=== PATIENT | male | born 1965 | race Caucasian/White ===

== ENCOUNTER 2016-11-22 06:20 | Emergency (ER) | payer OTHER ==
[2016-11-22 06:27] VITALS: BP 131/77; BMI 29.7
[2016-11-22] MEDS ORDERED: PREDNISONE TAB 20 MG PO ONE ×3 (06:44→06:58)
[2016-11-22] MEDS ORDERED: TORADOL 60 MG VIAL IM ONE (06:44)
--- NOTE | 2016-11-22 06:48 | DR.GENAD ---
HPI - PCP Primary Care Physician: Annalee - Complaint/Symptoms Chief Complaint Doctors Comments: Patient complains of right elbow pain worst when he move his arm or straighten his elbow. States he was cutting down bushes in his yard a few days ago with pain in his right arm. States he and his mother thinks he pulled a liagment. States the pain is in his right arm at the elbow and goes toward his hand. He denies neck or shoulder pain. He denies headache or dizziness presently. States his strength is normal and the pain is 8 of 10. States he has been taking Goodys for pain. Chief Complaint:: "I was cutting down a mejia and my arm started hurting real bad. It feels like I pulled a ligament or something." - Nurses notes reviewed Nurses Notes Review: Yes - Source History Provided: Patient - Mode of Arrival Mode of Arrival: Ambulatory - Timing Onset of Chief Complaint: 11/10/16 Came on: Gradually - Duration Duration: Constant How lon Duration: Days - Location Location: right elbow - Severity Severity: Moderate - Modifying Factors Worsens:: movement Improves:: nothing PMH - PMH Past Medical History: Yes Past Medical History: Depression, Hypertension, Kidney Stones Past Surgical History: Yes Surgical History: Cholecystectomy, Ortho Surgery - Family History History of Family Medical Conditions: Yes Family Medical History: Cancer, [place], Coronary Artery Disease, Hypertension - Social History Does patient currently use any type of tobacco product: Yes Have you used tobacco products in the last 12 months: Yes Type of Tobacco Use: Cigarettes Does any household member use tobacco: Yes Alcohol Use: None Do you use any recreational Drugs:: No Lives With: Alone Lives Where: Home - infectious screening In the last 2 months have you had wt loss of >10#?: NO Have you had fever, night sweats or hemotysis?: No Have you traveled outside the country in the last 6 months?: No Isolation: Standard ROS - Review of Systems Constitutional: No Symptoms Reported. negative: See HPI, Chills, Diaphoresis, Fever, Malaise, Weakness, Irritable, Fatigue, Loss of Appetite, Other Eyes: No Symptoms Reported ENTM: No Symptoms Reported Respiratoy: No Symptoms Reported. negative: See HPI, Productive Cough, Non- Productive Cough, Moist Cough, Dry Cough, Hacking Cough, Barking Cough, Brassy Cough, Orthopnea, Short of Breath, Stridor, Wheezing, Hemoptysis, Other Cardiovascular: No Symptoms Reported Gastrointestinal/Abdominal: No Symptoms Reported. negative: See HPI, Abdominal Pain, Constipation, Diarrhea, Nausea, Vomiting, Food Intolerance, Other Genitourinary: No Symptoms Reported Neurological: Paresthesia (right arm at elbow). negative: No Symptoms Reported , See HPI, Anxiety, Depressed, Emotional Problems, Headache, Numbness, Pre- existing Deficit, Seizure, Tingling, Tremors, Weakness, Dizziness, Problems Walking, Speech Problem, Other Musculoskeletal: No Symptoms Reported, Right, Elbow, Forearm Integumentary: No Symptoms Reported Hematologic/Lymphatic: No Symptoms Reported Endocrine: No Symptoms Reported Psychiatric: No Symptoms Reported PE - Vital Signs Vitals: Temperature 98 F Pulse Rate 107 Respiratory Rate 18 Blood Pressure [Right Arm] 128/79 Blood Pressure [Left Arm] 98/65 Blood Pressure 131/77 O2 Sat by Pulse Oximetry 98 - General Limitations: No Limitations General Appearance: Alert, In Distress (moderate) - Head Head Exam: Normal Inspection, Atraumatic, Normocephalic - Eyes Eye exam: Normal Appearance, PERRL, EOMI. negative: Scleral Icterus, Conjunctival Injection, Nystagmus, Miosis, Mydrasis, Periorbital Swelling, Periorbital Tenderness, Other - ENT ENT Exam: Normal Exam, Normal Oropharynx, Normal External Ear Exam, Mucous Membranes Moist, TM's Normal Bilaterally External Ear Exam: Normal External Inspection TM/Canal Exam: Bilateral Normal Nose Exam: Normal Nose Exam Mouth Exam: Normal Inspection Throat Exam: Normal Inspection - Neck Neck Exam: Normal Inspection, Full ROM, Trachea Midline. negative: Tenderness, Meningismus, Lymphadenopathy, Thyromegaly, Other - Chest Chest Inspection: Normal Inspection, Symmetric Chest Wall Rise. negative: Tenderness, Rash, Abscess, Other - Respiratory Respiratory Exam: Normal Lung Sounds Bilat Respiratory Exam: Bilateral Clear to Auscultation - Cardiovascular Cardiovascular Exam: Regular Rate, Normal Rhythm, Normal Heart Sounds - Abdominal Exam Abdominal Exam: Normal Inspection, Normal Bowel Sounds, Soft. negative: Distention, Tenderness, Guarding, Rebound, Rigidity, Dimnished Bowel Sounds, Hyperactive Bowel Sounds, Hypoactive Bowel Sounds, Organomegaly, Trauma, Incision, Ascites, Mass, Bruit, Pulsatile Mass, Hernia, Other Abdominal Tenderness: negative: RUQ, RLQ, LUQ, LLQ, Epigastrium, Suprapubic, Diffuse, Mild, Moderate, Severe, Other - Extremities Extremities Exam: Normal Inspection, Full ROM, Tenderness (right elbow tender on palpation medial arm and extension of elbow), Normal Capillary Refill - Back Back Exam: Normal Inspection, Full ROM. negative: Tenderness, (R) CVA Tenderness, (L) CVA Tenderness, Muscle Spasm, Paraspinal Tenderness, Vertebral Tenderness, Rashes, (R) Sciatic Notch Tenderness, (L) Sciatic Notch Tendern, (R ) Straight Leg Raise, (L) Straight Leg Raise, Other - Neurologic Neurological Exam: Alert, Oriented X3, CN II-XII Intact, Normal Gait, Reflexes Normal - Psychiatric Psychiatric Exam: Normal Affect, Normal Mood - Skin Skin Exam: Warm, Dry, Intact, Normal Color ROR - Labs Reviewed Laboratory Results Reviewed?: Yes (all x-ray results reviewed and discussed with patient) - XRAY XRAY Interpreted by: Radiologist (Right elbow: Periacrticular joint edema withou acute fracture: Forearm: Diffuse forearm soft tissue swelling and edema. Negative right forearm radiography for acute fracture.) - Diagnosis Discharge Problem: Arm pain, right, Tendonitis of elbow, right Muscle strain of forearm Qualifiers: Encounter type: initial encounter Laterality: right Qualified Code(s): S56.911A - Strain of unspecified muscles, fascia and tendons at forearm level, right arm, initial encounter - Discharge Plan Disposition: HOME, SELF-CARE Condition: Stable Prescriptions: Acetaminophen/Codeine Tab [TYLENOL w/CODEINE #3 (300 MG/30 MG) *] 1 tab PO Q4- 6H PRN #30 tab PRN Reason: Pain Meloxicam [MOBIC 15 MG *] 15 mg PO DAILY #10 tab Methylprednisolone [Medrol Dosepak] 4 mg PO TID 7 Days - Follow ups/Referrals Follow ups/Referrals: JOE POLANCO [Primary Care Provider] - 3 days BORA BALBUENA [STAFF PHYSICIAN] - 3 days - Instructions Instructions: Tendon Injury, Tendinitis, [id number], Muscle Pain, Adult
[2016-11-22] MEDS ORDERED: TORADOL 60 MG VIAL ONE (06:54)
--- NOTE | 2016-11-22 07:21 | RAD ---
HISTORY: Right elbow pain. Study: 3 view series right elbow joint. Comparison: None Findings: No acute fracture, subluxation, or dislocation is identified. No lytic or bone forming lesions are s een. No osteochondral defects are observed. There is no evidence for significant degenerative arthro sis and or focal joint erosion. No elbow intra-articular loose bodies are seen. No joint effusion is seen. The radial head is unremarkable in its appearance. IMPRESSION: 1. Periarticular joint edema without acute fracture or dislocation observed. Reported By:
--- NOTE | 2016-11-22 07:22 | RAD ---
History: Forearm pain. Exam: AP and lateral views right forearm. Findings: The radius and ulna both are intact. There is no evidence for an acute fracture or disloca tion of either the proximal or distal radius or ulna. The DRUJ and elbow joints are both intact. Wha t is visible of the carpal bones shows no acute fracture/ bony abnormality. No unexpected radiopaque foreign bodies are seen. Diffuse forearm edema is appreciated. Impression: Diffuse forearm soft tissue swelling and edema observed. Negative right forearm radiography for acute fracture. Reported By:
== END 2016-11-22 08:12 | disposition home or self-care (01) ==
LOC: ER 06:20
DX: S56.911A Strain of unspecified muscles, fascia and tendons at forearm level, right arm, initial encounter (principal); M70.31 Other bursitis of elbow, right elbow; M79.601 Pain in right arm; M79.89 Other specified soft tissue disorders; Y33.XXXA Other specified events, undetermined intent, initial encounter; Y92.9 Unspecified place or not applicable; R60.9 Edema, unspecified
CPT/HCPCS: 73070; 73090; 96372; 99282; J1885; J7506

== ENCOUNTER 2017-04-25 01:09 | Emergency (ER) | payer OTHER, MEDICAID ==
[2017-04-25 01:23] VITALS: BP 142/96; BMI 31.3
--- NOTE | 2017-04-27 01:04 | DR.GENAD ---
HPI - PCP Primary Care Physician: Felicitas POLACNO NP - Complaint/Symptoms Chief Complaint:: SHARP PAINS IN RIGHT ARM/ELBOW AREA CANNOT HOLD ONTO ANYTHING. SWOLLEN AREA ON FOREARM NEAR ELBOW. - Source History Provided: Patient - Mode of Arrival Mode of Arrival: Ambulatory - Timing Onset of Chief Complaint: 02/17/17 PMH - PMH Past Medical History: Yes Past Medical History: Depression, Hypertension, Kidney Stones Past Surgical History: Yes Surgical History: Cholecystectomy, Ortho Surgery - Family History History of Family Medical Conditions: Yes Family Medical History: Cancer, [place], Coronary Artery Disease, Hypertension - Social History Does patient currently use any type of tobacco product: Yes Have you used tobacco products in the last 12 months: Yes Type of Tobacco Use: Cigarettes How many years tobacco product used: 30 Does any household member use tobacco: No Alcohol Use: None Do you use any recreational Drugs:: No Lives With: Alone Lives Where: Home - infectious screening In the last 2 months have you had wt loss of >10#?: NO Have you had fever, night sweats or hemotysis?: No Have you traveled outside the country in the last 6 months?: No Isolation: Standard PE - Vital Signs Vitals: Temperature 97.9 F Pulse Rate 107 Respiratory Rate 20 Blood Pressure [Right Arm] 128/79 Blood Pressure [Left Arm] 98/65 Blood Pressure 142/96 O2 Sat by Pulse Oximetry 97 - Discharge Plan Disposition: LWBS After Triage Condition: Stable - Follow ups/Referrals Follow ups/Referrals: JOE POLANCO [Primary Care Provider] - 3 days - Instructions
== END 2017-04-25 01:45 | disposition left against medical advice (07) ==
LOC: ER 01:09
DX: M79.601 Pain in right arm (principal)
CPT/HCPCS: 99281

== ENCOUNTER 2019-08-22 21:35 | Inpatient (IN) ==
[2019-08-22 22:03] VITALS: BMI 32.6
[2019-08-22] MEDS ORDERED: BENADRYL INJ 50 MG VIAL IM ONE (22:11)
[2019-08-22] MEDS ORDERED: HALDOL INJ IM ONE (22:11)
[2019-08-22] MEDS ORDERED: ATIVAN INJ 2 MG VIAL IVP ONE (22:12)
--- NOTE | 2019-08-22 22:14 | DR.AMS ---
HPI Time Seen Time Seen by Provider: 08/22/19 22:11 PCP Primary Care Physician: HPI Comment HPI Comment: Pt. very agitated. Long psych hx. He is claiming " someone slipped me something" Pt. sniffling constantly throughout eval and triage Complaint Chief Complaint:: PT STATED HE HAS NUMBNESS NOTED IN BOTH ARMS AND CHEST. Source History Provided: Patient Mode of Arrival Mode of Arrival: Ambulatory Timing Onset of Chief Complaint: 08/20/19 Came On: Suddenly Symptoms: Worsening Symptom Onset: Unknown Duration Duration: Since Onset Quality Quality: Change in Behavior Severity Severity: Moderate Context Recent: None History Of: None Associated Signs and Symptoms Associated Signs and Symptoms: Change in Behavior PMH PMH Past Medical History: Yes Past Medical History: Hypertension Past Surgical History: Yes Surgical History: Cholecystectomy and Ortho Surgery Past Surgical History Comment: LEFT LEG SURGERY. CARPAL TUNNEL SURGERY ON LEFT ARM. Family History History of Family Medical Conditions: Yes Family Medical History: Diabetes Mellitus and Hypertension Social History Does patient currently use any type of tobacco product: Yes Have you used tobacco products in the last 12 months: Yes Type of Tobacco Use: Cigarettes Does any household member use tobacco: Yes Alcohol Use: None Do you use any recreational Drugs:: No Lives With: Family infectious screening In the last 2 months have you had wt loss of >10#?: NO Have you had fever, night sweats or hemotysis?: No Have you traveled outside the country in the last 6 months?: No Isolation: Standard ROS Review of Systems Constitutional: No Symptoms Reported Eyes: No Symptoms Reported ENTM: No Symptoms Reported Respiratoy: No Symptoms Reported Cardiovascular: No Symptoms Reported Gastrointestinal/Abdominal: No Symptoms Reported Genitourinary: No Symptoms Reported Neurological: Numbness and Tingling Musculoskeletal: No Symptoms Reported and Muscle Pain (myalgia generalized) Integumentary: No Symptoms Reported Hematologic/Lymphatic: No Symptoms Reported Endocrine: No Symptoms Reported Psychiatric: See HPI, Anxiety and Other (agitation) All Other Systems: Reviewed and Negative PE Vitals Vital Signs: Temp Pulse Pulse Resp BP BP BP 08/23/19 08:00 106/72 08/23/19 07:45 112/58 08/23/19 07:00 124/53 08/23/19 06:30 116/59 08/23/19 06:00 138/95 08/23/19 05:30 84 153/77 08/23/19 05:00 86 136/77 08/23/19 04:30 93 H 173/89 08/23/19 04:00 89 119/74 08/23/19 03:15 84 105/65 08/23/19 03:00 86 107/66 08/23/19 00:45 130/60 08/23/19 00:06 127/82 08/22/19 21:56 97.8 F 133 H 22 04/18/19 10:32 146/84 08/12/18 20:28 144/83 06/01/14 01:43 128/79 Pulse Ox 08/23/19 08:00 08/23/19 07:45 08/23/19 07:00 08/23/19 06:30 08/23/19 06:00 08/23/19 05:30 08/23/19 05:00 08/23/19 04:30 08/23/19 04:00 08/23/19 03:15 08/23/19 03:00 08/23/19 00:45 08/23/19 00:06 08/22/19 21:56 96 04/18/19 10:32 08/12/18 20:28 06/01/14 01:43 General Limitations: No Limitations General Appearance: Alert, Anxious, In Distress and Other (agitated) Head Head Exam: Normal Inspection Eyes Eye exam: Normal Appearance ENT ENT Exam: Normal Exam External Ear Exam: Normal External Inspection Nose Exam: Normal Nose Exam Mouth Exam: Normal Inspection Throat Exam: Normal Inspection Neck Neck Exam: Normal Inspection Chest Chest Inspection: Normal Inspection Respiratory Respiratory Exam: Normal Lung Sounds Bilat Cardiovascular Cardiovascular Exam: Regular Rate and Normal Rhythm Abdominal Exam Abdominal Exam: Normal Inspection, Normal Bowel Sounds and Soft Extremities Extremities Exam: Normal Inspection Back Back Exam: Normal Inspection Neurological Neurological Exam: Alert and Oriented X3 Psychological Psychiatric Exam: Normal Affect and Normal Mood Skin Skin Exam: Warm, Dry, Intact and Normal Color MDM Additional Information Obtained Additional Information Obtained From: Family Differential Diagnosis Metabolic: Dehydration, Hypoglycemia and Post-ictal COURSE Reevaluation 1st: Unchanged 2nd: Improved ROR Labs Reviewed Laboratory Results Reviewed?: Yes Result Diagrams: 08/23/19 00:32 08/23/19 08:36 Laboratory: WBC 8.3 X10^3/uL (3.6-10.0) 08/23/19 00:32 RBC 5.00 X10^6/uL (4.7-6.0) 08/23/19 00:32 Hgb 13.3 g/dL (13.5-18.0) L 08/23/19 00:32 Hct 39.5 % (42.0-54.0) L 08/23/19 00:32 MCV 79.0 fL (80.0-100.0) L 08/23/19 00:32 MCH 26.5 pg (27.0-34.0) L 08/23/19 00:32 MCHC 33.6 g/dL (33.0-35.0) 08/23/19 00:32 RDW 14.6 % (11.6-16.5) 08/23/19 00:32 Plt Count 159 X10^3/uL (150.0-450.0) 08/23/19 00:32 MPV 10.1 fL (7.4-11.0) 08/23/19 00:32 Neut % (Auto) 54.6 % (42.0-75.0) 08/23/19 00:32 Lymph % (Auto) 26.2 % (21.0-51.0) 08/23/19 00:32 [place] % (Auto) 11.7 % (0.0-13.0) 08/23/19 00:32 Eos % (Auto) 6.1 % (0.9-2.9) H 08/23/19 00:32 Baso % (Auto) 1.4 % (0.2-1.0) H 08/23/19 00:32 Neut # (Auto) 4.5 x10^3/uL (2.2-4.8) 08/23/19 00:32 Lymph # (Auto) 2.2 X10^3/uL (1.3-2.9) 08/23/19 00:32 [place] # (Auto) 1.0 x10^3/uL (0.3-0.8) H 08/23/19 00:32 Eos # (Auto) 0.5 x10^3/uL (0.0-0.2) H 08/23/19 00:32 Baso # (Auto) 0.1 X10^3/uL (0.0-0.1) 08/23/19 00:32 Absolute Nucleated RBC 0.0 /100WBC 08/23/19 00:32 Sodium 142 mmol/L (136-145) 08/23/19 00:32 Corrected Sodium 143 mmol/L (136-145) 08/23/19 00:32 Potassium 3.9 mmol/L (3.5-5.1) 08/23/19 00:32 Chloride 107 mmol/L (98-107) 08/23/19 00:32 Carbon Dioxide 22.1 mmol/L (21-32) 08/23/19 00:32 BUN 29 mg/dL (7-18) H 08/23/19 00:32 Creatinine 1.10 mg/dL (0.70-1.30) 08/23/19 00:32 Est GFR (MDRD) Af Amer > 60 (>60) 08/23/19 00:32 Est GFR (MDRD) Non-Af > 60 (>60) 08/23/19 00:32 Glucose 135 mg/dL (65-99) H 08/23/19 00:32 Calcium 8.4 mg/dL (8.5-10.1) L 08/23/19 00:32 Corrected Calcium TNP 08/23/19 00:32 Total Bilirubin 0.30 mg/dL (0.2-1.0) 08/23/19 00:32 AST 193 Units/L (15-37) H 08/23/19 00:32 ALT 71 Units/L (12-78) 08/23/19 00:32 Alkaline Phosphatase 128 Units/L (46-116) H 08/23/19 00:32 Creatine Kinase 7817 Units/L (39-308) H 08/23/19 00:32 Total Protein 7.8 g/dL (6.4-8.2) 08/23/19 00:32 Albumin 3.9 g/dL (3.4-5.0) 08/23/19 00:32 Globulin 3.9 g/dL (2.5-4.5) 08/23/19 00:32 Albumin/Globulin Ratio 1.0 Ratio (1.1-2.1) L 08/23/19 00:32 Specimen Type Random urine 08/23/19 07:43 Urine Color Yellow (YELLOW) 08/23/19 07:43 Urine Appearance Hazy (CLEAR) 08/23/19 07:43 Urine pH 5.0 (5.0 - 8.0) 08/23/19 07:43 Ur Specific [place] 1.025 (1.000-1.030) 08/23/19 07:43 Urine Protein 1+ (NEGATIVE) 08/23/19 07:43 Urine Glucose (UA) Negative (NEGATIVE) 08/23/19 07:43 Urine Ketones 2+ (NEGATIVE) 08/23/19 07:43 Urine Occult Blood 1+ (NEGATIVE) 08/23/19 07:43 Urine Nitrite Negative (NEGATIVE) 08/23/19 07:43 Urine Bilirubin Negative (NEGATIVE) 08/23/19 07:43 Urine Urobilinogen Normal (NORMAL) 08/23/19 07:43 Ur Leukocyte Esterase 2+ (NEGATIVE) 08/23/19 07:43 Urine RBC 0-2 /HPF (0-3) 08/23/19 07:43 Urine WBC 0-2 /HPF (0-5) 08/23/19 07:43 Ur Squamous Epith Cells Negative /HPF (NEGATIVE) 08/23/19 07:43 Urine Bacteria Negative /HPF (NEGATIVE) 08/23/19 07:43 Ur Culture Indicated? No/not indicated 08/23/19 07:43 Urine Opiates Screen Negative (NEG=<300) 08/23/19 07:43 Urine Methadone Screen Negative (NEG=<300) 08/23/19 07:43 Ur Barbiturates Screen Negative (NEG=<200) 08/23/19 07:43 Ur Phencyclidine Scrn Negative (NEG=<25) 08/23/19 07:43 Ur Amphetamines Screen Positive (NEG=<1000) 08/23/19 07:43 U Benzodiazepines Scrn Negative (NEG=<200) 08/23/19 07:43 Urine Cocaine Screen Negative (NEG=<300) 08/23/19 07:43 U Marijuana (THC) Screen Negative (NEG=<50) 08/23/19 07:43 XRAY XRAY Interpreted by: Self XRAY Findings: CXR NAD neg infiltrate normal mediastinum EKG Rate: 65 [place]: Normal Rhythm: NSR Block: None ST: Normal Opioid Opioid Risk Tool Age (Jelani box if 16-45): No History of Preadolescent Sexual Abuse: No Total: 0 Total Score Risk Category: Low Risk Copyright: Zoltan PINA predicting aberrant behaviors Procedures Procedure Comments Procedures: critical care time 68 minutes Diagnosis Discharge Problem: Methamphetamine intoxication Rhabdomyolysis Qualifiers: Rhabdomyolysis type: non-traumatic Qualified Code(s): M62.82 - Rhabdomyolysis ADDITIONAL NOTES Additional Notes Additional Notes: Dr. Loco accepted at 08:18
[2019-08-22] MEDS ORDERED: ATIVAN INJ 2 MG VIAL ONE (22:22)
[2019-08-22] MEDS ORDERED: BENADRYL INJ 50 MG VIAL ONE (22:31)
[2019-08-22] MEDS ORDERED: GEODON INJ IM ONE ×2 (23:12→23:29)
[2019-08-22] MEDS ORDERED: GEODON INJ IM NR (23:45)
[2019-08-23] MEDS ORDERED: NS 1000 ML 1,000 ML IV ONE ×4 (00:12→08:22)
[2019-08-23] MEDS ORDERED: NS 1000 ML 1,000 ML ONE ×3 (00:23→06:36)
[2019-08-23 00:43] LABS: BASOPHILS # (AUTO) 0.1 X10^3/uL (0.0-0.1); BASOPHILS % (AUTO) 1.4 % (0.2-1.0); EOSINOPHILS # (AUTO) 0.5 x10^3/uL (0.0-0.2); EOSINOPHILS % (AUTO) 6.1 % (0.9-2.9); HEMATOCRIT 39.5 % (42.0-54.0); HEMOGLOBIN 13.3 g/dL (13.5-18.0); LYMPHOCYTES # (AUTO) 2.2 X10^3/uL (1.3-2.9); LYMPHOCYTES % (AUTO) 26.2 % (21.0-51.0); MEAN CORPUSCULAR HEMOGLOBIN 26.5 pg (27.0-34.0); MEAN CORPUSCULAR HGB CONC 33.6 g/dL (33.0-35.0); MEAN PLATELET VOLUME 10.1 fL (7.4-11.0); MONOCYTES % (AUTO) 11.7 % (0.0-13.0); NEUTROPHILS # (AUTO) 4.5 x10^3/uL (2.2-4.8); NEUTROPHILS % (AUTO) 54.6 % (42.0-75.0); PLATELET COUNT 159 X10^3/uL (150.0-450.0); RED CELL DISTRIBUTION WIDTH 14.6 % (11.6-16.5); WHITE BLOOD COUNT 8.3 X10^3/uL (3.6-10.0)
[2019-08-23 01:19] LABS: ALANINE AMINOTRANSFERASE 71 Units/L (12-78); ALBUMIN 3.9 g/dL (3.4-5.0); ALKALINE PHOSPHATASE 128 Units/L (46-116); ASPARTATE AMINO TRANSFERASE 193 Units/L (15-37); BLOOD UREA NITROGEN 29 mg/dL (7-18); CALCIUM 8.4 mg/dL (8.5-10.1); CARBON DIOXIDE 22.1 mmol/L (21-32); CHLORIDE 107 mmol/L (98-107); COR NA(FOR HYPERGLY) 143 mmol/L (136-145); SODIUM 142 mmol/L (136-145); TOTAL PROTEIN 7.8 g/dL (6.4-8.2); eGFR NON BLACK RACES > 60 (>60)
[2019-08-23 01:41] LABS: CREATINE KINASE 7817 Units/L (39-308)
[2019-08-23 07:54] LABS: BILIRUBIN,URINE NEGATIVE (NEGATIVE); BLOOD/HEMOGLOBIN,URINE 1+ (NEGATIVE); GLUCOSE, URINE NEGATIVE (NEGATIVE); KETONES,URINE 2+ (NEGATIVE); LEUKOCYTE ESTERASE ,URINE 2+ (NEGATIVE); NITRITES,URINE NEGATIVE (NEGATIVE); PROTEIN,URINE 1+ (NEGATIVE); UROBILINOGEN,URINE NORMAL (NORMAL)
[2019-08-23 08:01] LABS: APPEARANCE,URINE HAZY (CLEAR); BACTERIA,URINE NEGATIVE /HPF (NEGATIVE); COLOR,URINE YELLOW (YELLOW); RBC,URINE 0-2 /HPF (0-3); SQUAMOUS EPITHELIAL CELL,UR NEGATIVE /HPF (NEGATIVE)
[2019-08-23] MEDS ORDERED: ATIVAN INJ 2 MG VIAL IVP ONE (08:53)
[2019-08-23] MEDS ORDERED: ATIVAN INJ 2 MG VIAL ONE (08:54)
[2019-08-23 09:05] LABS: ALANINE AMINOTRANSFERASE 63 Units/L (12-78); ALBUMIN 3.5 g/dL (3.4-5.0); ALKALINE PHOSPHATASE 111 Units/L (46-116); ASPARTATE AMINO TRANSFERASE 141 Units/L (15-37); BLOOD UREA NITROGEN 21 mg/dL (7-18); CALCIUM 7.4 mg/dL (8.5-10.1); CHLORIDE 111 mmol/L (98-107); COR NA(FOR HYPERGLY) 144 mmol/L (136-145); CREATININE 0.82 mg/dL (0.70-1.30); SODIUM 143 mmol/L (136-145); TOTAL PROTEIN 6.6 g/dL (6.4-8.2); eGFR NON BLACK RACES > 60 (>60)
[2019-08-23 09:23] LABS: TROPONIN I < 0.02 ng/mL (0-1.5)
[2019-08-23 09:25] LABS: CKMB % 0.8 % (<4); CREATINE KINASE MB 39.7 ng/mL (0-4.0)
[2019-08-23 09:26] LABS: CREATINE KINASE 4794 Units/L (39-308)
--- NOTE | 2019-08-23 10:15 | RAD ---
HISTORYCHEST PAINSTUDYPortable AP chestCOMPARISONJanuary 2013FINDINGSThe lungs are clear and the heart and mediastinum are unremarkable. There is no edema or effusion or congestion. No bony abnormality is demonstrated.IMPRESSIONNo evidence for acute cardiopulmonary diseaseElectronically signed by: KIMBERLY PAULINO (Aug 23, 2019 10:13:33)
[2019-08-23] MEDS ORDERED: LR 1000 ML IV 1,000 ML IV ONE (11:50)
[2019-08-23] MEDS: LR 1000 ML IV 1,000 ML IV SCH ×4 (11:52→23:45)
[2019-08-23 15:32] LABS: TROPONIN I < 0.02 ng/mL (0-1.5)
[2019-08-23 15:33] LABS: CKMB % 0.9 % (<4); CREATINE KINASE 3945 Units/L (39-308)
[2019-08-23 15:36] LABS: CREATINE KINASE MB 36.4 ng/mL (0-4.0)
[2019-08-23 22:19] LABS: TROPONIN I < 0.02 ng/mL (0-1.5)
[2019-08-23 22:21] LABS: CKMB % 0.8 % (<4); CREATINE KINASE 2882 Units/L (39-308); CREATINE KINASE MB 22.6 ng/mL (0-4.0)
[2019-08-23] MEDS ORDERED: LR 1000 ML IV 2,000 ML IV ONE (22:54)
[2019-08-24] MEDS: LR 1000 ML IV 1,000 ML IV SCH ×2 (04:00→08:54)
[2019-08-24 08:55] VITALS: BP 122/74
== END 2019-08-24 11:02 | disposition home or self-care (01) | DRG 558 ==
LOC: ER 21:54 → OBS 08-23 08:30
PROVIDERS: ADMIT Obstetrics & Gynecology Obstetrics; ATTEND Obstetrics & Gynecology Obstetrics
DX: R20.0 Anesthesia of skin; F15.90 Other stimulant use, unspecified, uncomplicated; M62.82 Rhabdomyolysis; F11.929 Opioid use, unspecified with intoxication, unspecified
CPT/HCPCS: 36415; 71010; 71045; 80053; 80307; 81001; 82550; 82553; 84484; 85025; 93005; 94760; 96365; 96367; 96372; 96374; 96375; 99284; A4216; A4222; J1200; J1630; J2060; J3486; J7030; J7120

== ENCOUNTER 2020-04-25 18:05 | Observation (INO) ==
[2020-04-25 18:22] VITALS: BMI 38.7
--- NOTE | 2020-04-25 18:22 | CT ---
CT head without contrastIndication: Left-sided weakness.TECHNIQUEAxial images from the skullbase to the vertex without contrast. Coronal and sagittal reformats provided.COMPARISONNo recent similar priorFINDINGSReview of bone windows demonstrates no osseous lesion. Paranasal sinuses and mastoid air cells are clear. There is no acute intracranial hemorrhage, mass or mass effect. No extra-axial fluid collection or abnormal area of hypoattenuation to suggest infarction seen. Ventricles and sulci are normal.IMPRESSIONNo acute intracranial hemorrhage.Electronically signed by: SIENA RICARDO (Apr 25, 2020 18:21:28)
[2020-04-25] MEDS ORDERED: NS 1000 ML 1,000 ML ONE (18:25)
[2020-04-25] MEDS ORDERED: NS 1000 ML 1,000 ML IV ONE (18:26)
[2020-04-25] MEDS ORDERED: OFIRMEV IV 1000 MG VIAL 1,000 MG/100 ML VIAL IV ONE ×2 (18:26)
--- NOTE | 2020-04-25 18:27 | DR.WEAKNES ---
HPI Time Seen Time Seen by Provider: 04/25/20 18:20 Primary Care Physician Primary Care Physician: BROOKE HPI Comment HPI Comment: [facility] 55 y[facility] who was found with altered mental status. Initially, he was following commands from the residential nurse but by the time the EMS staff arrived, he was no longer verbal or able to follow com mands. Complaints Chief Complaint:: pt has lt sided weakness and not responsing to staff last seen normal at 1730 Source History Provided: EMS Mode of Arrival Mode of Arrival: EMS Timing Onset of Chief Complaint: 04/25/20 Symptom Onset: Known Context Stroke Symptoms: Aphasia PMH PMH Past Medical History: Yes Past Medical History: Hypertension Past Surgical History: Yes Surgical History: Cholecystectomy and Ortho Surgery Family History History of Family Medical Conditions: Yes Family Medical History: Diabetes Mellitus and Hypertension Social History Type of Tobacco Use: Cigarettes Does any household member use tobacco: No Alcohol Use: None Do you use any recreational Drugs:: No Lives With: Other Lives Where: residential Travel Risk Coronavirus risk:travel/contact w/high risk person: No Has patient experienced Coronavirus symptoms: Yes Coronavirus symptoms experienced: Fever Infectious screening In the last 2 months have you had wt loss of >10#?: NO Have you traveled outside the country in the last 6 months?: No Isolation: Droplet ROS Review of Systems Constitutional: No Symptoms Reported Eyes: No Symptoms Reported ENTM: No Symptoms Reported Respiratoy: No Symptoms Reported Cardiovascular: No Symptoms Reported Gastrointestinal/Abdominal: No Symptoms Reported Genitourinary: No Symptoms Reported Neurological: Other (altered mental status) Musculoskeletal: No Symptoms Reported Integumentary: No Symptoms Reported Hematologic/Lymphatic: No Symptoms Reported Endocrine: No Symptoms Reported Psychiatric: No Symptoms Reported PE Vital Signs Vitals: Temperature 101.1 F Pulse Rate 101 Respiratory Rate 22 Blood Pressure [Right Arm] 122/74 Blood Pressure 132/89 O2 Sat by Pulse Oximetry 94 General Limitations: No Limitations General Appearance: Alert, In No Apparent Distress and Obese Head Head Exam: Normal Inspection, Atraumatic and Normocephalic Eyes Eye exam: Normal Appearance and PERRL ENT ENT Exam: Normal Exam, Normal Oropharynx, Normal External Ear Exam and Mucous Membranes Moist Neck Neck Exam: Normal Inspection, Full ROM and Trachea Midline Chest Chest Inspection: Normal Inspection and Symmetric Chest Wall Rise Respiratory Respiratory Exam: Normal Lung Sounds Bilat Cardiovascular Cardiovascular Exam: Normal Rhythm, Tachycardia, Normal Heart Sounds, +S1 and +S2 Abdominal Exam Abdominal Exam: Normal Inspection, Normal Bowel Sounds and Soft Extremities Extremities Exam: Normal Inspection and Normal Capillary Refill; negative Full ROM, Tenderness, Edema, Joint Swelling and Calf Tenderness Back Back Exam: Normal Inspection Neurologic Neurological Exam: Alert Speech: Other (Aphasia) Psychiatric Psychiatric Exam: Normal Affect and Normal Mood Skin Skin Exam: Dry and Normal Color MDM Differential Diagnosis Differential Diagnosis: CVA, Drug overdose and TIA COURSE Treatment Treatment: Name: TESSA LINARES : 1965 Sex: M Location: ER Order Number(s): [id number] Procedure(s):CHEST, 1 VIEW Ordering Physician: GABRIELE GEE Primary Care: MARIA LUZ PATTEN Service Date: 04/25/20 Service Time: 1820 CHEST, 1 VIEW HISTORY: Fever Study: Single view of the chest. Comparison:August 23, 2019 Findings: Cardiomegaly. Diffuse interstitial prominence and early airspace opacities with poor inspiratory effort.No definite focal consolidations. Osseous structures demonstrate no acute abnormality. IMPRESSION: 1. Probable atypical infection. Electronically signed by: AVELINO FERNÁNDEZ (Apr 25, 2020 18:42:13) Reevaluation 1st: Improved (After banda catheter was attempted, he now moving extremities ) Consultation Consultation Comments: I did review his presentation and findings with substation design draftsperson provider (Dr. Cross) , who agrees to have the pt. placed in observation status. ROR Labs Reviewed Result Diagrams: 04/25/20 18:40 04/25/20 18:40 Laboratory: WBC 13.9 X10^3/uL (3.6-10.0) H 04/25/20 18:40 RBC 6.01 X10^6/uL (4.7-6.0) H 04/25/20 18:40 Hgb 15.4 g/dL (13.5-18.0) 04/25/20 18:40 Hct 46.6 % (42.0-54.0) 04/25/20 18:40 MCV 77.5 fL (80.0-100.0) L 04/25/20 18:40 MCH 25.6 pg (27.0-34.0) L 04/25/20 18:40 MCHC 33.0 g/dL (33.0-35.0) 04/25/20 18:40 RDW 13.5 % (11.6-16.5) 04/25/20 18:40 Plt Count 186 X10^3/uL (150.0-450.0) 04/25/20 18:40 Plt Count Comment Adequate (ADEQUATE) 04/25/20 18:40 MPV 9.6 fL (7.4-11.0) 04/25/20 18:40 Neut % (Auto) 81.9 % (42.0-75.0) H 04/25/20 18:40 Lymph % (Auto) 11.7 % (21.0-51.0) L 04/25/20 18:40 [place] % (Auto) 5.1 % (0.0-13.0) 04/25/20 18:40 Eos % (Auto) 0.7 % (0.9-2.9) L 04/25/20 18:40 Baso % (Auto) 0.6 % (0.2-1.0) 04/25/20 18:40 Neut # (Auto) 11.4 x10^3/uL (2.2-4.8) H 04/25/20 18:40 Lymph # (Auto) 1.6 X10^3/uL (1.3-2.9) 04/25/20 18:40 [place] # (Auto) 0.7 x10^3/uL (0.3-0.8) 04/25/20 18:40 Eos # (Auto) 0.1 x10^3/uL (0.0-0.2) 04/25/20 18:40 Baso # (Auto) 0.1 X10^3/uL (0.0-0.1) 04/25/20 18:40 Absolute Nucleated RBC 0.0 /100WBC 04/25/20 18:40 Plt Morphology Comment Normal (NORMAL) 04/25/20 18:40 RBC Morphology Abnormal (NORMAL) 04/25/20 18:40 Hypochromasia Slight A 04/25/20 18:40 PT 13.3 SECONDS (11.8-14.3) 04/25/20 18:40 INR Target Range - 04/25/20 18:40 INR 1.04 (0.8-1.3) 04/25/20 18:40 APTT 30.3 SECONDS (22.9-36.5) 04/25/20 18:40 PTT Comment - 04/25/20 18:40 Fibrinogen 395 mg/dL (239-489) 04/25/20 18:40 Sodium 130 mmol/L (136-145) L 04/25/20 18:40 Corrected Sodium 136 mmol/L (136-145) 04/25/20 18:40 Potassium 3.9 mmol/L (3.5-5.1) 04/25/20 18:40 Chloride 96 mmol/L (98-107) L 04/25/20 18:40 Carbon Dioxide 23.8 mmol/L (21-32) 04/25/20 18:40 BUN 14 mg/dL (7-18) 04/25/20 18:40 Creatinine 0.91 mg/dL (0.70-1.30) 04/25/20 18:40 Est GFR (MDRD) Af Amer > 60 (>60) 04/25/20 18:40 Est GFR (MDRD) Non-Af > 60 (>60) 04/25/20 18:40 Glucose 336 mg/dL (65-99) H 04/25/20 18:40 Calcium 9.5 mg/dL (8.5-10.1) 04/25/20 18:40 Corrected Calcium TNP 04/25/20 18:40 Total Bilirubin 0.40 mg/dL (0.2-1.0) 04/25/20 18:40 AST 21 Units/L (15-37) 04/25/20 18:40 ALT 35 Units/L (12-78) 04/25/20 18:40 Alkaline Phosphatase 154 Units/L (46-116) H 04/25/20 18:40 Creatine Kinase 62 Units/L (39-308) 04/25/20 18:40 CK-MB (CK-2) < 1.0 ng/mL (0-4.0) 04/25/20 18:40 CK/CKMB % Calc 1.6 % (<4) 04/25/20 18:40 Troponin I < 0.02 ng/mL (0-1.5) 04/25/20 18:40 Total Protein 8.7 g/dL (6.4-8.2) H 04/25/20 18:40 Albumin 3.8 g/dL (3.4-5.0) 04/25/20 18:40 Globulin 4.9 g/dL (2.5-4.5) H 04/25/20 18:40 Albumin/Globulin Ratio 0.8 Ratio (1.1-2.1) L 04/25/20 18:40 Triglycerides 84 mg/dL (0-150) 04/25/20 18:40 Cholesterol 135 mg/dL (0-200) 04/25/20 18:40 LDL Cholesterol, Calc 86 mg/dL (0-100) 04/25/20 18:40 HDL Cholesterol 32 mg/dL (40-60) L 04/25/20 18:40 Cholesterol/HDL Ratio 4.2 (0.0-5.0) 04/25/20 18:40 Specimen Type Clean catch urine 04/25/20 20: Urine Color Yellow (YELLOW) 04/25/20 20: Urine Appearance Clear (CLEAR) 04/25/20 20: Urine pH 5.0 (5.0 - 8.0) 04/25/20 20: Ur Specific [place] 1.015 (1.000-1.030) 04/25/20 20: Urine Protein 1+ (NEGATIVE) 04/25/20 20: Urine Glucose (UA) 4+ (NEGATIVE) 04/25/20 20: Urine Ketones Negative (NEGATIVE) 04/25/20 20: Urine Occult Blood 1+ (NEGATIVE) 04/25/20 20: Urine Nitrite Negative (NEGATIVE) 04/25/20 20: Urine Bilirubin Negative (NEGATIVE) 04/25/20 20: Urine Urobilinogen Normal (NORMAL) 04/25/20 20: Ur Leukocyte Esterase 2+ (NEGATIVE) 04/25/20 20: Urine RBC 0-2 /HPF (0-3) 04/25/20 20: Urine WBC 10-20 /HPF (0-5) A 04/25/20 20: Ur Squamous Epith Cells Few /HPF (NEGATIVE) 04/25/20 20: Urine Bacteria 1+ /HPF (NEGATIVE) 04/25/20 20: Ur Culture Indicated? Yes/culture set up 04/25/20 20:03 SARS-CoV-2 (PCR) Negative (NEGATIVE) 04/25/20 19:41 EKG Rate: 128 [place]: LAD Rhythm: ST Block: None Hypertrophy: None ST: Normal Opioid Opioid Risk Tool Age (Jelani box if 16-45): No History of Preadolescent Sexual Abuse: No Total: 0 Total Score Risk Category: Low Risk Copyright: Zoltan PINA predicting aberrant behaviors Diagnosis Discharge Problem: Paresis of lower extremity, Paralysis of both upper limbs, Acute hyponatremia, Leukocytosis, Sinus tachycardia, Hyperglycemia ADDITIONAL NOTES Additional Notes Additional Notes: Name: TESSA LINARES : 1965 Sex: M Location: ER Order Number(s): [id number] Procedure(s):BRAIN W/O CON Ordering Physician: GABRIELE GEE Primary Care: MARIA LUZ PATTEN Service Date: 04/25/20 Service Time: 1807 CT head without contrast Indication: Left-sided weakness. TECHNIQUE Axial images from the skullbase to the vertex without contrast. Coronal and sagittal reformats provided. COMPARISON No recent similar prior FINDINGS Review of bone windows demonstrates no osseous lesion. Paranasal sinuses and mastoid air cells are clear. There is no acute intracranial hemorrhage, mass or mass effect. No extra-axial fluid collection or abnormal area of hypoattenuation to suggest infarction seen. Ventricles and sulci are normal. IMPRESSION No acute intracranial hemorrhage. Electronically signed by: SIENA RICARDO (Apr 25, 2020 18:21:28)
[2020-04-25] MEDS ORDERED: LOPRESSOR INJ 5 MG AMP IVP ONE (18:31)
[2020-04-25] MEDS ORDERED: LOPRESSOR INJ 5 MG AMP ONE (18:34)
--- NOTE | 2020-04-25 18:42 | RAD ---
CHEST, 1 VIEWHISTORY: FeverStudy: Single view of the chest.Comparison:August 23, 2019Findings:Cardiomegaly. Diffuse interstitial prominence and early airspace opacities with poor inspiratory effort.No definite focal consolidations. Osseous structures demonstrate no acute abnormality.IMPRESSION:1. Probable atypical infection.Electronically signed by: AVELINO FERNÁNDEZ (Apr 25, 2020 18:42:13)
[2020-04-25 18:50] LABS: BASOPHILS # (AUTO) 0.1 X10^3/uL (0.0-0.1); BASOPHILS % (AUTO) 0.6 % (0.2-1.0); EOSINOPHILS # (AUTO) 0.1 x10^3/uL (0.0-0.2); EOSINOPHILS % (AUTO) 0.7 % (0.9-2.9); HEMATOCRIT 46.6 % (42.0-54.0); HEMOGLOBIN 15.4 g/dL (13.5-18.0); LYMPHOCYTES # (AUTO) 1.6 X10^3/uL (1.3-2.9); LYMPHOCYTES % (AUTO) 11.7 % (21.0-51.0); MEAN CORPUSCULAR HEMOGLOBIN 25.6 pg (27.0-34.0); MEAN CORPUSCULAR VOLUME 77.5 fL (80.0-100.0); MEAN PLATELET VOLUME 9.6 fL (7.4-11.0); MONOCYTES # (AUTO) 0.7 x10^3/uL (0.3-0.8); MONOCYTES % (AUTO) 5.1 % (0.0-13.0); NEUTROPHILS # (AUTO) 11.4 x10^3/uL (2.2-4.8); NEUTROPHILS % (AUTO) 81.9 % (42.0-75.0); PLATELET COUNT 186 X10^3/uL (150.0-450.0); RED BLOOD COUNT 6.01 X10^6/uL (4.7-6.0); RED CELL DISTRIBUTION WIDTH 13.5 % (11.6-16.5); WHITE BLOOD COUNT 13.9 X10^3/uL (3.6-10.0)
[2020-04-25 18:57] LABS: HYPOCHROMASIA SLIGHT; PLATELET MORPHOLOGY COMMENT NORMAL (NORMAL)
[2020-04-25] MEDS ORDERED: NS 1/2 1000 ML IV 1,000 ML IV SCH (19:00)
[2020-04-25 19:07] LABS: BLOOD UREA NITROGEN 14 mg/dL (7-18); CALCIUM 9.5 mg/dL (8.5-10.1); CARBON DIOXIDE 23.8 mmol/L (21-32); CHLORIDE 96 mmol/L (98-107); COR NA(FOR HYPERGLY) 136 mmol/L (136-145); CREATININE 0.91 mg/dL (0.70-1.30); SODIUM 130 mmol/L (136-145); TROPONIN I < 0.02 ng/mL (0-1.5); eGFR NON BLACK RACES > 60 (>60)
[2020-04-25 19:10] LABS: ALANINE AMINOTRANSFERASE 35 Units/L (12-78); ALBUMIN 3.8 g/dL (3.4-5.0); ALKALINE PHOSPHATASE 154 Units/L (46-116); ASPARTATE AMINO TRANSFERASE 21 Units/L (15-37); CHOL/HDL RATIO 4.2 (0.0-5.0); CHOLESTEROL 135 mg/dL (0-200); CKMB % 1.6 % (<4); CREATINE KINASE 62 Units/L (39-308); CREATINE KINASE MB < 1.0 ng/mL (0-4.0); HDL CHOLESTEROL 32 mg/dL (40-60); TOTAL PROTEIN 8.7 g/dL (6.4-8.2); TRIGLYCERIDES 84 mg/dL (0-150)
[2020-04-25] MEDS ORDERED: ASPIRIN 81 MG CHEWTAB ONE (19:18)
[2020-04-25] MEDS ORDERED: ASPIRIN 81 MG CHEWTAB PO ONE (19:21)
[2020-04-25] MEDS ORDERED: NS 1/2 1000 ML IV 1,000 ML IV ONE (19:58)
[2020-04-25 20:15] LABS: BILIRUBIN,URINE NEGATIVE (NEGATIVE); BLOOD/HEMOGLOBIN,URINE 1+ (NEGATIVE); GLUCOSE, URINE 4+ (NEGATIVE); KETONES,URINE NEGATIVE (NEGATIVE); LEUKOCYTE ESTERASE ,URINE 2+ (NEGATIVE); NITRITES,URINE NEGATIVE (NEGATIVE); PROTEIN,URINE 1+ (NEGATIVE); UROBILINOGEN,URINE NORMAL (NORMAL)
[2020-04-25 20:22] LABS: APPEARANCE,URINE CLEAR (CLEAR); COLOR,URINE YELLOW (YELLOW); RBC,URINE 0-2 /HPF (0-3)
[2020-04-25 20:23] LABS: BACTERIA,URINE 1+ /HPF (NEGATIVE); SQUAMOUS EPITHELIAL CELL,UR FEW /HPF (NEGATIVE)
[2020-04-25] MEDS ORDERED: HumaLOG SC PRN (20:58)
[2020-04-25] MEDS: NS 1/2 1000 ML IV 1,000 ML IV SCH (21:59)
[2020-04-25] MEDS ORDERED: TYLENOL 325 MG TAB PO ONE ×2 (23:38→23:40)
[2020-04-26] MEDS ORDERED: HumuLIN R ONE (06:33)
[2020-04-26] MEDS: HumuLIN R SUBCUT PRN ×3 (06:36→11:20)
[2020-04-26 06:38] LABS: BASOPHILS % (AUTO) 0.4 % (0.2-1.0); EOSINOPHILS # (AUTO) 0.1 x10^3/uL (0.0-0.2); EOSINOPHILS % (AUTO) 0.8 % (0.9-2.9); HEMATOCRIT 43.9 % (42.0-54.0); HEMOGLOBIN 14.8 g/dL (13.5-18.0); LYMPHOCYTES # (AUTO) 1.8 X10^3/uL (1.3-2.9); LYMPHOCYTES % (AUTO) 16.8 % (21.0-51.0); MEAN CORPUSCULAR HEMOGLOBIN 26.1 pg (27.0-34.0); MEAN CORPUSCULAR HGB CONC 33.6 g/dL (33.0-35.0); MEAN CORPUSCULAR VOLUME 77.7 fL (80.0-100.0); MEAN PLATELET VOLUME 9.9 fL (7.4-11.0); MONOCYTES # (AUTO) 0.8 x10^3/uL (0.3-0.8); MONOCYTES % (AUTO) 7.4 % (0.0-13.0); NEUTROPHILS # (AUTO) 8.1 x10^3/uL (2.2-4.8); NEUTROPHILS % (AUTO) 74.6 % (42.0-75.0); PLATELET COUNT 154 X10^3/uL (150.0-450.0); RED BLOOD COUNT 5.65 X10^6/uL (4.7-6.0); RED CELL DISTRIBUTION WIDTH 13.7 % (11.6-16.5); WHITE BLOOD COUNT 10.9 X10^3/uL (3.6-10.0)
[2020-04-26] MEDS ORDERED: NS 1/2 1000 ML IV 1,000 ML IV ONE (06:38)
[2020-04-26] MEDS: NS 1/2 1000 ML IV 1,000 ML IV SCH (06:42)
[2020-04-26 07:02] LABS: ALANINE AMINOTRANSFERASE 29 Units/L (12-78); ALBUMIN 3.4 g/dL (3.4-5.0); ALKALINE PHOSPHATASE 138 Units/L (46-116); ASPARTATE AMINO TRANSFERASE 17 Units/L (15-37); BLOOD UREA NITROGEN 12 mg/dL (7-18); CALCIUM 8.8 mg/dL (8.5-10.1); CARBON DIOXIDE 26.4 mmol/L (21-32); CHLORIDE 100 mmol/L (98-107); COR NA(FOR HYPERGLY) 140 mmol/L (136-145); CREATININE 1.02 mg/dL (0.70-1.30); SODIUM 136 mmol/L (136-145); eGFR NON BLACK RACES > 60 (>60)
[2020-04-26] MEDS ORDERED: TYLENOL 325 MG TAB PO ONE (08:50)
[2020-04-26] MEDS ORDERED: ASPIRIN EC 81 MG PO SCH (09:00)
[2020-04-26] MEDS ORDERED: ACTOS PO SCH (10:45)
[2020-04-26] MEDS ORDERED: TYLENOL 325 MG TAB PO PRN (10:55)
[2020-04-26] MEDS ORDERED: TORADOL 30 MG VIAL IVP PRN (10:55)
[2020-04-26] MEDS ORDERED: LEVAQUIN PREMIX IV 750 MG 750 MG/150 ML BAG IV SCH (11:00)
[2020-04-26] MEDS ORDERED: GLUCOPHAGE XR 24-HR PO SCH (11:00)
[2020-04-26 12:18] VITALS: BP 149/90
[2020-04-26] MEDS ORDERED: SNACK - Diabetic Appropriate PO SCH (20:00)
[2020-04-27] MEDS ORDERED: ACTOS PO SCH (09:00)
== END 2020-04-26 14:10 | disposition left against medical advice (07) ==
LOC: OBS 18:06 → ER 18:06 → OBS 22:02 → MED/SURG 04-26 13:13
PROVIDERS: ADMIT Internal Medicine; ATTEND Obstetrics & Gynecology Obstetrics
DX: R53.1 Weakness; R00.0 Tachycardia, unspecified; E87.1 Hypo-osmolality and hyponatremia; Z20.828 Contact with and (suspected) exposure to other viral communicable diseases; G83.24 Monoplegia of upper limb affecting left nondominant side; D72.828 Other elevated white blood cell count; R50.9 Fever, unspecified; R41.82 Altered mental status, unspecified; G83.10 Monoplegia of lower limb affecting unspecified side; B96.89 Other specified bacterial agents as the cause of diseases classified elsewhere; Z53.29 Procedure and treatment not carried out because of patient's decision for other reasons; G83.21 Monoplegia of upper limb affecting right dominant side